=== PATIENT | male | born 1985 | race Caucasian/White ===

== ENCOUNTER 2020-11-22 16:49 | Emergency (ER) | payer OTHER ==
[~2020-11-22 16:49] MED LIST: ANTIVERT25 MG PO; AUGMENTIN 875-1 EACH PO; FIORICET1 EACH PO; MOBIC15 MG PO; ZOFRAN4 MG PO
== END 2020-11-22 19:06 | disposition home or self-care (01) ==
LOC: FER 16:49
DX: T78.1XXA Other adverse food reactions, not elsewhere classified, initial encounter (principal); L50.0 Allergic urticaria; Z87.898 Personal history of other specified conditions
CPT/HCPCS: 93005; J7512